=== PATIENT | female | born 1990 | race American Indian/Alaskan Native ===

== ENCOUNTER 2017-02-27 23:20 | Emergency (ER) | payer MEDICAID ==
[2017-02-27] MEDS ORDERED: Albuterol/Ipratropium 3.0-0.5 MG/3 ML Neb Soln NEB ONE (23:26)
--- NOTE | 2017-02-27 23:34 | EDM.PDOC ---
ED HPI GENERAL MEDICAL PROBLEM - General Chief Complaint: Respiratory Problem Time Seen by Provider: 02/27/17 23:27 Source of Information: Reports: Patient, RN History Limitations: Reports: No Limitations - History of Present Illness INITIAL COMMENTS - FREE TEXT/NARRATIVE: sent from OB for SOB. denies asthma, been having sob past week. denies F/C. - Related Data Allergies Allergy/AdvReac Type Severity Reaction Status Date / Time No Known Allergies Allergy Verified 02/27/17 23:02 Home Meds: Home Meds Vit W-Ca,Fe,FA(<1 mg) [ Vitamins] 1 each PO DAILY 02/27/17 [ History] Past Medical History Endocrine/Metabolic History: Reports: Obesity/BMI 30+ - Past Surgical History Musculoskeletal Surgical History: Reports: Arthroscopic Procedure Social & Family History - Family History Cardiac: Reports: CAD Endocrine/Metabolic: Reports: Diabetes, type II, Obesity/MBI 30+ - Tobacco Use Smoking Status *Q: Never Smoker Second Hand Smoke Exposure: No - Caffeine Use Caffeine Use: Reports: Soda - Recreational Drug Use Recreational Drug Use: No - Living Situation & Occupation Living situation: Reports: with Family ED ROS GENERAL - Review of Systems Review Of Systems: ROS reveals no pertinent complaints other than HPI. ED EXAM, GENERAL - Physical Exam Exam: See Below Exam Limited By: No Limitations General Appearance: Alert, WD/WN, No Apparent Distress Ears: Hearing Grossly Normal Throat/Mouth: Normal Voice, No Airway Compromise Head: Atraumatic Neck: Non-Tender, Full Range of Motion Respiratory/Chest: No Respiratory Distress, No Accessory Muscle Use, Rhonchi. No: Decreased Breath Sounds Cardiovascular: Regular Rate, Rhythm GI/Abdominal: Soft, Non-Tender Neurological: Alert, Oriented, Normal Cognition, Normal Gait, No Motor/Sensory Deficits, Other Psychiatric: Normal Affect Skin Exam: Warm, Dry, Normal Color Lymphatic: No Adenopathy Course - Vital Signs Last Recorded V/S: Last Vital Signs Temp 36.8 C 02/27/17 23:45 Pulse 89 02/28/17 00:03 Resp 16 02/28/17 00:03 BP 145/84 H 02/28/17 00:03 Pulse Ox 97 02/28/17 00:03 - Orders/Labs/Meds Orders: Active Orders 24 hr Category Date Time Status RT Aerosol Therapy [RC] ASDIRECTED Care 02/27/17 23:27 Active Labs: Laboratory Tests 02/27/17 02/27/17 02/27/17 Range/Units 23:20 23:20 23:30 WBC 11.2 H (5.0-10.0) 10^3/uL RBC 4.13 L (4.2-5.4) 10^6/uL Hgb 11.5 L (12.0-16.0) g/dL Hct 35.1 L (37.0-47.0) % MCV 85.0 (80-100) fL MCH 27.8 (27.0-34.0) pg MCHC 32.8 L (33.0-35.0) g/dL Plt Count 327 (150-450) 10^3/uL Sodium (135-145) mmol/L Potassium (3.6-5.0) mmol/L Chloride (101-111) mmol/L Carbon Dioxide (21.0-31.0) mmol/L Anion Gap BUN (7-18) mg/dL Creatinine (0.6-1.3) mg/dL Est Cr Clr Drug Dosing mL/min Estimated GFR (MDRD) BUN/Creatinine Ratio Glucose (74-105) mg/dL Uric Acid (2.6-7.2) mg/dL Calcium (8.4-10.2) mg/dl Total Bilirubin (0.2-1.0) mg/dL AST (10-42) IU/L ALT (10-60) IU/L Alkaline Phosphatase (42-121) IU/L Lactate Dehydrogenase (91-180) IU/L Total Protein (6.7-8.2) g/dl Albumin (3.2-5.5) g/dl Globulin Albumin/Globulin Ratio Urine Color Yellow (YELLOW) Urine Appearance Clear (CLEAR) Urine pH 7.0 (5.0-9.0) Ur Specific [place] 1.015 (1.005-1.030) Urine Protein Negative (NEGATIVE) Urine Glucose (UA) Negative (NEGATIVE) Urine Ketones Negative (NEGATIVE) Urine Occult Blood Negative (NEGATIVE) Urine Nitrite Negative (NEGATIVE) Urine Bilirubin Negative (NEGATIVE) Urine Urobilinogen 0.2 (0.2-1.0) mg/dL Ur Leukocyte Esterase Negative (NEGATIVE) Urine RBC 0-5 /HPF Urine WBC 0-5 (0-5/HPF) /HPF Ur Epithelial Cells Few /HPF Urine Bacteria Moderate H (0-FEW/HPF) /HPF Ur Random Creatinine 44 mg/dL U Random Total Protein 7 (0.00-9.9) mg/dL Protein/Creatinin Ratio 0.15 02/27/17 Range/Units 23:30 WBC (5.0-10.0) 10^3/uL RBC (4.2-5.4) 10^6/uL Hgb (12.0-16.0) g/dL Hct (37.0-47.0) % MCV (80-100) fL MCH (27.0-34.0) pg MCHC (33.0-35.0) g/dL Plt Count (150-450) 10^3/uL Sodium 137 (135-145) mmol/L Potassium 3.3 L (3.6-5.0) mmol/L Chloride 103 (101-111) mmol/L Carbon Dioxide 22.0 (21.0-31.0) mmol/L Anion Gap 15.3 BUN 8 (7-18) mg/dL Creatinine 0.4 L (0.6-1.3) mg/dL Est Cr Clr Drug Dosing 205.17 mL/min Estimated GFR (MDRD) > 60 BUN/Creatinine Ratio 20.00 Glucose 91 (74-105) mg/dL Uric Acid 2.5 L (2.6-7.2) mg/dL Calcium 10.1 (8.4-10.2) mg/dl Total Bilirubin 0.3 (0.2-1.0) mg/dL AST 16 (10-42) IU/L ALT 18 (10-60) IU/L Alkaline Phosphatase 96 (42-121) IU/L Lactate Dehydrogenase 155 (91-180) IU/L Total Protein 7.0 (6.7-8.2) g/dl Albumin 2.9 L (3.2-5.5) g/dl Globulin 4.1 Albumin/Globulin Ratio 0.71 Urine Color (YELLOW) Urine Appearance (CLEAR) Urine pH (5.0-9.0) Ur Specific [place] (1.005-1.030) Urine Protein (NEGATIVE) Urine Glucose (UA) (NEGATIVE) Urine Ketones (NEGATIVE) Urine Occult Blood (NEGATIVE) Urine Nitrite (NEGATIVE) Urine Bilirubin (NEGATIVE) Urine Urobilinogen (0.2-1.0) mg/dL Ur Leukocyte Esterase (NEGATIVE) Urine RBC /HPF Urine WBC (0-5/HPF) /HPF Ur Epithelial Cells /HPF Urine Bacteria (0-FEW/HPF) /HPF Ur Random Creatinine mg/dL U Random Total Protein (0.00-9.9) mg/dL Protein/Creatinin Ratio Meds: Medications Discontinued Medications Generic Name Dose Route Start Last Admin Trade Name Freq PRN Reason Stop Dose Admin Albuterol/Ipratropium 3 ml 02/27/17 23:26 02/27/17 23:36 Duoneb 3.0-0.5 Mg/3 Ml NEB 02/27/17 23:27 3 ml ONETIME ONE Administration - Re-Assessments/Exams Free Text/Narrative Re-Assessment/Exam: 02/28/17 00:30 re-exam; s/p duoneb = 90% cleared. Departure - Departure Time of Disposition: 00:30 Disposition: Home, Self-Care 01 Condition: Good Clinical Impression: Bronchospasm - Discharge Information Instructions: Bronchospasm, Adult, [id number] Referrals: Arelis Savage MD [Primary Care Provider] - Forms: ED Department Discharge Additional Instructions: Lay down and rest as much as possible until your appointment with Dr Savage on Tuesday this week. Check and record blood pressures occassionally and bring to appointment. Return if symptoms worsen. Call [phone] with any questions anytime. - My Orders Last 24 Hours: My Active Orders 02/27/17 23:27 RT Aerosol Therapy [RC] ASDIRECTED - Assessment/Plan Last 24 Hours: My Active Orders 02/27/17 23:27 RT Aerosol Therapy [RC] ASDIRECTED
[2017-02-28 00:03] VITALS: BP 145/84
[2017-02-28 00:04] LABS: CHLORIDE,CL 103 mmol/L (101-111); SODIUM,NA 137 mmol/L (135-145)
== END 2017-02-28 00:34 | disposition home or self-care (01) ==
LOC: DL.ED 23:20 → EDSTATUS 23:21 → DL.ED 02-28 00:34
DX: J98.01 Acute bronchospasm (principal); E66.9 Obesity, unspecified; E11.9 Type 2 diabetes mellitus without complications
CPT/HCPCS: 36415; 80053; 81001; 82570; 83615; 84156; 84550; 85027; 94640; 99285

== ENCOUNTER 2017-04-04 00:07 | Inpatient (IN) | payer BC, MEDICAID ==
[2017-04-04] MEDS ORDERED: Lactated Ringers 500 ML IV ONE (00:25)
[2017-04-04] MEDS ORDERED: Lidocaine 1% 30 ML SDV INJECT PRN (00:25)
[2017-04-04] MEDS ORDERED: fentaNYL 100 MCG/2 ML SDV IVPUSH PRN (00:25)
[2017-04-04] MEDS ORDERED: Penicillin G Potassium 5 MILLUNITS in Sodium Chloride 0.9% 100 ML IV ONE ×2 (00:25→16:00)
[2017-04-04] MEDS ORDERED: Methylergonovine 0.2 MG/1 ML Amp IM PRN (00:25)
[2017-04-04] MEDS ORDERED: Acetaminophen 325 MG Tab PO PRN (00:25)
[2017-04-04] MEDS ORDERED: Misoprostol 400 MCG (4 X 100 MCG TAB) RECTAL PRN (00:25)
[2017-04-04] MEDS ORDERED: Nalbuphine 20 MG/1 ML Amp IVPUSH PRN (00:25)
[2017-04-04] MEDS ORDERED: Carboprost Tromethamine 250 MCG/1 ML Amp IM PRN (00:25)
[2017-04-04] MEDS ORDERED: Oxytocin 10 Units/1 ML SDV IM ONE (00:25)
--- NOTE | 2017-04-04 00:35 | PCM.LDHP ---
L&D History of Present Illness - General Date of Service: 04/04/17 Admit Problem/Dx: Patient Status Order with Admit Dx/Problem 04/04/17 00:25 Patient Status [ADT] Routine Admission Diagnosis/Problem Admission Diagnosis/Problem Source of Information: Patient History Limitations: Reports: No Limitations - History of Present Illness Introduction:: 26-year-old at 37w1d presents for IOL for gestational HTN. Baby has been active. Minimal [place] contractions. NO vaginal bleeding or leaking of fluids. No new headaches or vision changes. Taking labetalol 200 mg BID. Last dose was this evening. - Related Data Allergies/Adverse Reactions: Allergies Allergy/AdvReac Type Severity Reaction Status Date / Time No Known Allergies Allergy Verified 04/01/17 23:18 Home Medications: Home Meds Vit W-Ca,Fe,FA(<1 mg) [ Vitamins] 1 each PO DAILY 02/27/17 [ History] Labetalol HCl [Labetalol] 200 mg PO BID 03/21/17 [History] Past Medical History HEENT History: Reports: None Cardiovascular History: Reports: Hypertension, Other (See Below) Other Cardiovascular History: Gestational hypertension Respiratory History: Reports: None Gastrointestinal History: Reports: None Genitourinary History: Reports: None [employer]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: Musculoskeletal History: Reports: Fracture Neurological History: Reports: None Psychiatric History: Reports: None Endocrine/Metabolic History: Reports: Obesity/BMI 30+ Hematologic History: Reports: None Immunologic History: Reports: None Oncologic (Cancer) History: Reports: None Dermatologic History: Reports: Eczema - Infectious Disease History Infectious Disease History: Reports: Chicken Pox - Past Surgical History Musculoskeletal Surgical History: Reports: Arthroscopic Procedure Social & Family History - Family History Family Medical History: Noncontributory Cardiac: Reports: CAD Endocrine/Metabolic: Reports: Diabetes, type II, Obesity/MBI 30+ - Tobacco Use Smoking Status *Q: Never Smoker Second Hand Smoke Exposure: No - Caffeine Use Caffeine Use: Reports: None - Recreational Drug Use Recreational Drug Use: No - Living Situation & Occupation Living situation: Reports: with Family H&P Review of Systems - Review of Systems: Review Of Systems: See Below General: Reports: No Symptoms HEENT: Reports: No Symptoms Pulmonary: Reports: No Symptoms Cardiovascular: Reports: No Symptoms Gastrointestinal: Reports: No Symptoms Genitourinary: Reports: No Symptoms Musculoskeletal: Reports: No Symptoms Skin: Reports: No Symptoms L&D Exam - Exam Exam: See Below - OB Specific Contraction Intensity: Irritability Movement: Active Heart Tones: Present Heart Tones per Min: 135 Heart Rate (FHR) Variability: Moderate (6-25 bmp) Presentation: Vertex - Hirsch Score Hirsch Score Cervix Position: Midposition Hirsch Score Consistency: Soft Hirsch Score Effacement: 51-70% Hirsch Score Dilation: 1-2 cm Hirsch Score 's Station: -2 Hirsch Score Total: 7 - Exam General: Alert, Oriented HEENT: Conjunctiva Clear, EACs Clear Lungs: Clear to Auscultation, Normal Respiratory Effort Cardiovascular: Regular Rate, Regular Rhythm. No: Systolic Murmur, Diastolic Murmur Genitourinary: Normal external exam Extremities: Pedal Edema (Trace bilaterally) Skin: Warm, Dry, Intact - Problem List (1) Impaired glucose tolerance during Status: Acute Current Visit: Yes (2) GBS (group B Streptococcus carrier), +RV culture, currently SNOMED Code(s): 81217767 ICD Code: O99.820 - STREPTOCOCCUS B CARRIER STATE COMPLICATING Status: Acute Current Visit: Yes (3) Gestational HTN SNOMED Code(s): 08784028 ICD Code: O13.9 - GESTATIONAL HTN W/O SIGNIFICANT PROTEINURIA, UNSP TRIMESTER Status: Acute Current Visit: No (4) care in third trimester SNOMED Code(s): 103494182, 78256516, 469171285, 175129390 ICD Code: Z34.93 - ENCNTR FOR SUPRVSN OF NORMAL PREG, UNSP, THIRD TRIMESTER Status: Acute Current Visit: No Problem List Initiated/Reviewed/Updated: Yes Orders Last 24hrs: Active Orders 24 hr Category Date Time Status Patient Status [ADT] Routine ADT 04/04/17 00:25 Ordered Communication Order [RC] ASDIRECTED Care 04/04/17 00:25 Ordered Communication Order [RC] ASDIRECTED Care 04/04/17 00:25 Ordered Communication Order [RC] ASDIRECTED Care 04/04/17 00:25 Ordered Communication Order [RC] ASDIRECTED Care 04/04/17 00:25 Ordered Communication Order [RC] ASDIRECTED Care 04/04/17 00:25 Ordered Communication Order [RC] ASDIRECTED Care 04/04/17 00:25 Ordered Heart Tones [RC] PER UNIT ROUTINE Care 04/04/17 00:25 Ordered Monitoring [RC] PER UNIT ROUTINE Care 04/04/17 00:25 Ordered Notify Provider Vital Signs OB [RC] ASDIRECTED Care 04/04/17 00:25 Ordered Notify Provider [RC] PRN Care 04/04/17 00:25 Ordered Notify Provider [RC] PRN Care 04/04/17 00:25 Ordered Notify Provider [RC] PRN Care 04/04/17 00:25 Ordered Notify Provider [RC] STAT Care 04/04/17 00:25 Ordered Peripheral IV Care [RC] . DIRECTED Care 04/04/17 00:26 Ordered Pump Management, Intrathecal [RC] ASDIRECTED Care 04/04/17 00:25 Ordered Up ad Jinny [RC] ASDIRECTED Care 04/04/17 00:25 Ordered Vaginal Exam [RC] PRN Care 04/04/17 00:25 Ordered Vital Signs [RC] PER UNIT ROUTINE Care 04/04/17 00:25 Ordered Clear Liquid Diet [DIET] Diet 04/04/17 Breakfast Ordered CBC W/O DIFF,HEMOGRAM [HEME] Routine Lab 04/04/17 00:25 Ordered Acetaminophen [Tylenol] Med 04/04/17 00:25 Ordered 650 mg PO Q4H PRN Carboprost Tromethamine [Hemabate DS] Med 04/04/17 00:25 Ordered 250 mcg IM ASDIRECTED PRN Lactated Ringers @ 125 MLS/HR(1000ml) Med 04/04/17 00:30 Ordered Lactated Ringers [Ringers, Lactated] 1,000 ml IV ASDIRECTED Lactated Ringers [Ringers, Lactated] 500 ml Med 04/04/17 00:25 Ordered IV .BOLUS Lidocaine 1% [Xylocaine-MPF 1%] Med 04/04/17 00:25 Ordered 10 ml INJECT ASDIRECTED PRN Methylergonovine [Methergine] Med 04/04/17 00:25 Ordered 0.2 mg IM ASDIRECTED PRN Misoprostol [Cytotec] Med 04/04/17 00:25 Ordered 25 mcg VAG Q4H PRN Misoprostol [Cytotec] Med 04/04/17 00:25 Ordered 800 mcg RECTAL ASDIRECTED PRN Nalbuphine [Nubain] Med 04/04/17 00:25 Ordered 10 mg IVPUSH Q3H PRN Ondansetron [Zofran] Med 04/04/17 00:25 Ordered 4 mg IV Q4H PRN Oxytocin 30 Units in NS @ 2 MUNITS/MIN(500ml) Med 04/04/17 00:30 Ordered Oxytocin/Normal Saline [Pitocin in NS 30 UNIT/500 ML] 30 unit in 500 ml IV TITRATE Oxytocin [Pitocin] Med 04/04/17 00:25 Once 10 unit IM ONETIME ONE Penicillin G Potassium [Pfizerpen] 3 millunits Med 04/04/17 02:00 Ordered Sodium Chloride 0.9% [Normal Saline] 100 ml IV Q4HR Penicillin G Potassium [Pfizerpen] 5 millunits Med 04/04/17 00:25 Ordered Sodium Chloride 0.9% [Normal Saline] 100 ml IV ONETIME fentaNYL [Sublimaze] Med 04/04/17 00:25 Ordered 50 mcg IVPUSH Q1H PRN Peripheral IV Insertion Adult [OM.PC] Urgent Oth 04/04/17 00:25 Ordered Saline Lock Insert [OM.PC] Routine Oth 04/04/17 00:25 Ordered Resuscitation Status Routine Resus Stat 04/04/17 00:25 Ordered Assessment/Plan Comment:: 26-year-old at 37w1d presents for IOL for gestational HTN 1. Admit to L&D. Initiate routine intrapartum orders 2. Cytotec for cervical ripening. Plan for AROM and pitocin as needed for augmentation. 3. Will start PCN for GBS positive status when patient is in more active labor 4. Continue home dose of labetalol 5. Expectant management. Arelis Savage MD
[2017-04-04] MEDS: Misoprostol 25 MCG (1/4 of 100 MCG) Tab VAG PRN ×3 (00:52→08:52)
[2017-04-04] MEDS: Labetalol 100 MG Tab PO SCH ×2 (08:50→22:03)
[2017-04-04] MEDS: Oxytocin/Normal Saline 30 UNIT/500 ML BAG IV SCH (15:32)
[2017-04-04] MEDS: Lactated Ringers 1,000 ML IV SCH ×3 (15:32→22:29)
[2017-04-04] MEDS: Penicillin G Potassium 3 MILLUNITS in Sodium Chloride 0.9% 100 ML IV SCH ×3 (16:55→21:54)
[2017-04-04] MEDS: Labetalol 20 MG/4 ML Syringe IVPUSH PRN (17:10)
[2017-04-04] MEDS: Ondansetron 4 MG/2 ML SDV IV PRN (21:26)
[2017-04-04] MEDS ORDERED: fentaNYL 100 MCG/2 ML SDV ONE (21:36)
--- NOTE | 2017-04-04 22:29 | PCM.PRNOTE ---
- Free Text/Narrative Note: Requested to provide analgesia to full term patient in severe pain. Upon entering the room, patient is sitting on edge of bed complaining of severe abdominal pain and discomfort. Procedure was discussed with patient including adverse outcomes and expectations. Pt consented to analgesia, SAB/IT. Pt placed into a sitting position. Landmarks for SAB/IT were identified and marked. Back was prepped with betadine x3. A sterile, transparent, fenestrated drape was applied. Excess betadine was removed. Using 3 mL of a 1% lidocaine solution, a skin wheel was placed at the L3/L4 interspace. A 24 ga (4 inch) Pencan spinal needle was inserted until positive for CSF. Negative for heme or paresthesias. Injected fentanyl 20 mcg, sufentanil 10 mcg, and 11.25 mg of a 0.75% bupivacaine solution with an epi wash. Pt was placed left lateral position for approximately 20 minutes. There were zero complications or adverse outcomes. Will continue to monitor.
[2017-04-05] MEDS ORDERED: Nalbuphine 20 MG/1 ML Amp IM ONE (02:38)
[2017-04-05] MEDS: Labetalol 20 MG/4 ML Syringe IVPUSH PRN (03:11)
[2017-04-05] MEDS: Penicillin G Potassium 3 MILLUNITS in Sodium Chloride 0.9% 100 ML IV SCH ×3 (03:19→12:10)
[2017-04-05] MEDS ORDERED: fentaNYL 100 MCG/2 ML SDV ONE (03:34)
[2017-04-05] MEDS: Ondansetron 4 MG/2 ML SDV IV PRN (03:34)
[2017-04-05] MEDS: Lactated Ringers 1,000 ML IV SCH ×3 (03:39→08:01)
--- NOTE | 2017-04-05 04:26 | PCM.PRNOTE ---
- Free Text/Narrative Note: Requested to provide analgesia to full term patient in severe pain. Upon entering the room, patient is lying on left side complaining of severe abdominal pain and discomfort. Procedure was discussed with patient including adverse outcomes and expectations. Pt consented to analgesia, SAB/IT. Pt placed into a sitting position. Landmarks for SAB/IT were identified and marked. Back was prepped with betadine x3. A sterile, transparent, fenestrated drape was applied. Excess betadine was removed. Using 3 mL of a 1% lidocaine solution, a skin wheel was placed at the L3/L4 interspace. A 24 ga (4 inch) Pencan spinal needle was inserted until positive for CSF. Negative for heme or paresthesias. Injected fentanyl 20 mcg, sufentanil 10 mcg, and 12 mg of a 0.75 % bupivacaine solution with an epi wash. Pt was placed left lateral position for approximately 20 minutes. There were zero complications or adverse outcomes. Will continue to monitor.
[2017-04-05] MEDS ORDERED: Benzocaine/Menthol 20%-0.5% Spray 56 GM Canister TOP PRN (08:49)
[2017-04-05] MEDS ORDERED: Sodium Chloride 0.9% 10 ML Syringe FLUSH PRN (08:49)
[2017-04-05] MEDS ORDERED: Simethicone 80 MG Tab.Chew PO PRN (08:49)
[2017-04-05] MEDS: Prenatal Multivitamin with Calcium/Folic Acid/Iron Tab PO SCH (09:08)
[2017-04-05] MEDS: Ibuprofen 800 MG Tab PO PRN ×2 (09:08→20:09)
[2017-04-05] MEDS: Docusate Sodium 100 MG Cap PO PRN ×2 (09:08→20:09)
[2017-04-05] MEDS: Labetalol 100 MG Tab PO SCH ×2 (09:09→20:23)
[2017-04-05] MEDS: Oxytocin/Normal Saline 30 UNIT/500 ML BAG IV SCH (09:16)
[2017-04-05] MEDS ORDERED: fentaNYL 100 MCG/2 ML SDV ITHECAL ONE (13:11)
--- NOTE | 2017-04-05 16:51 | PCM.DEL ---
L & D Note - General Info Date of Service: 04/05/17 Mother's Due Date: 04/23/17 - Delivery Note Labor: Augmented by ARM, Augmented by Oxytocin Cervical Ripening Method: Misoprostil Delivery Outcome: Livebirth Infant Delivery Method: Spontaneous Vaginal Delivery-Single Delivery Mode: Vacuum Extraction Presentation: Vertex Nuchal Cord: Present, Reduced Anesthesia Type: Local, Intrathecal Anesthetic: Lidocaine (Xylocaine) 0.5% Plain Local Anesthetic Volume: 5cc Amniotic Fluid Description: Clear Episiotomy Type: None Laceration: 2nd Degree, Perineal Suture type: Vicryl Suture size: 3-0 Placenta: Intact, Spontaneous Cord: 3 Vessels Estimated Blood Loss: 225 Resuscitation Needed: Yes : Suctioned, Bulb Syringe, Stimulated, Warmed, Warmer Used Provider: Arelis Savage Score 1 min: 4 Score 5 min: 8 Post Delivery Events: Shoulder Dystocia (30 seconds; resolved with McRobert's and suprapubic pressure) Delivery Comments (Free Text/Narrative):: 26-year-old, , presented to L&D at 37w2d gestation for IOL due to gestational HTN. Patient received 3 doses of Cytotec. After the 3rd dose, patient was spring too frequently for a 4th dose so pitocin was started. Patient SROM around 1900 yesterday. She received IV pain medications and intrathecal x2 for pain relief. Patient progressed and was noted to be completed at 0700 today (37w3d). She pushed for one hour. Due to maternal fatigue, a vacuum delivery was performed. The vacuum was applied for 7 minutes and used during 2 contractions. There were no pop-offs. After delivery of the head, a should dystocia occurred. This lasted approximately 30 seconds and resolved using McRobert's positioning and suprapubic pressure. After delivery, a loose nuchal was reduced. Umbilical cord was cut and clamped x2. Baby was taken to the warmer for resuscitation. Apgars were 4 and 8 at 1 and 5 minutes respectively. The placenta delivered spontaneously a short time later. Pitocin was stated. A second degree perineal laceration was repaired in the usual fashion. Bleeding was noted to be appropriate. There were no immediate complications. Induction Criteria - Hirsch Score Hirsch Score Dilation: 1-2 cm Hirsch Score Effacement: 40-50% Hirsch Score Infant's Station: -2 Hirsch Score Consistency: Medium Hirsch Score Cervix Position: Posterior Hirsch Score Total: 4 - Induction Gestational Age >/= 39 wks: No Medical Indication: Gestational HTN Estimated Pelvis: Reports: Adequate Reassuring Monitoring Strip: Yes Absence of Tachy Systole: Yes - Augmentation Estimated Pelvis: Reports: Adequate Weight Estimated:: Reports: AGA Reassuring Monitoring Strip: Yes Absence of Tachy Systole: Yes Vacuum Extractor Progress Note - Alternative Labor Strategies Considered Alternative Labor Strategies Considered:: Reports: Yes Strategies Considered:: Reports: Contraction Intensity Adequate, Position Changes Used to Facilitate Rotation & Descent, Empty Bladder, Rest Indications Considered:: Reports: Yes Indications:: Reports: Shortening of 2nd Stage for Maternal Benefit - Patient Prepared Patient Prepared:: Reports: Yes Informed Consent:: Reports: Verbal Risks Include:: Reports: Shoulder Dystocia, Maternal Injury Anesthesia/Analgesia Adequate:: Reports: Yes - Probability of Success High Probability of Success:: Reports: Yes Weight Estimated:: Reports: AGA Patient Diabetic:: Reports: No Pelvis Adequate:: Reports: Yes Asynclitic:: Reports: No - Application Time Maximum Application Time & Number of Pop-Offs Predetermined:: Reports: Yes Type of Vacuum Used:: Reports: Cup: Mcneal type Vacuum Extraction: Successful - General Info Date of Service: 04/05/17 - Patient Data Vitals - Most Recent: Last Vital Signs Temp 37.1 C 04/05/17 11:00 Pulse 81 04/05/17 16:23 Resp 16 04/05/17 16:23 BP 141/83 H 04/05/17 16:23 Pulse Ox Weight - Most Recent: 153.314 kg I&O - Last 24 Hours: Intake & Output 04/05/17 04/05/17 04/05/17 06:59 14:59 22:59 Intake Total 9520 Output Total 950 Balance 8570 Lab Results Last 24 Hours: Laboratory Results - last 24 hr 04/04/17 04/04/17 04/04/17 Range/Units 17:30 17:30 18:00 WBC 9.6 (5.0-10.0) 10^3/uL RBC 4.06 L (4.2-5.4) 10^6/uL Hgb 10.7 L (12.0-16.0) g/dL Hct 33.2 L (37.0-47.0) % MCV 81.8 (80-100) fL MCH 26.4 L (27.0-34.0) pg MCHC 32.2 L (33.0-35.0) g/dL Plt Count 327 (150-450) 10^3/uL BUN (7-18) mg/dL Creatinine (0.6-1.3) mg/dL Est Cr Clr Drug Dosing mL/min Estimated GFR (MDRD) Uric Acid (2.6-7.2) mg/dL AST (10-42) IU/L Alkaline Phosphatase (42-121) IU/L Lactate Dehydrogenase (91-180) IU/L Urine Color Yellow (YELLOW) Urine Appearance Slightly cloudy (CLEAR) Urine pH 7.0 (5.0-9.0) Ur Specific [place] 1.010 (1.005-1.030) Urine Protein Negative (NEGATIVE) Urine Glucose (UA) Negative (NEGATIVE) Urine Ketones Negative (NEGATIVE) Urine Occult Blood Negative (NEGATIVE) Urine Nitrite Negative (NEGATIVE) Urine Bilirubin Negative (NEGATIVE) Urine Urobilinogen 0.2 (0.2-1.0) mg/dL Ur Leukocyte Esterase Negative (NEGATIVE) Ur Random Creatinine 47 mg/dL U Random Total Protein 6 (0.00-9.9) mg/dL Protein/Creatinin Ratio 0.12 04/04/17 Range/Units 18:00 WBC (5.0-10.0) 10^3/uL RBC (4.2-5.4) 10^6/uL Hgb (12.0-16.0) g/dL Hct (37.0-47.0) % MCV (80-100) fL MCH (27.0-34.0) pg MCHC (33.0-35.0) g/dL Plt Count (150-450) 10^3/uL BUN 7 (7-18) mg/dL Creatinine 0.5 L (0.6-1.3) mg/dL Est Cr Clr Drug Dosing 167.26 mL/min Estimated GFR (MDRD) > 60 Uric Acid 3.1 (2.6-7.2) mg/dL AST 22 (10-42) IU/L Alkaline Phosphatase 119 (42-121) IU/L Lactate Dehydrogenase 159 (91-180) IU/L Urine Color (YELLOW) Urine Appearance (CLEAR) Urine pH (5.0-9.0) Ur Specific [place] (1.005-1.030) Urine Protein (NEGATIVE) Urine Glucose (UA) (NEGATIVE) Urine Ketones (NEGATIVE) Urine Occult Blood (NEGATIVE) Urine Nitrite (NEGATIVE) Urine Bilirubin (NEGATIVE) Urine Urobilinogen (0.2-1.0) mg/dL Ur Leukocyte Esterase (NEGATIVE) Ur Random Creatinine mg/dL U Random Total Protein (0.00-9.9) mg/dL Protein/Creatinin Ratio Med Orders - Current: Current Medications Acetaminophen (Tylenol) 650 mg PO Q4H PRN PRN Reason: Pain (Mild 1-3) and fever Benzocaine/Menthol (Dermoplast Pain Relief [place]) 0 gm TOP Q4H PRN PRN Reason: Perineal comfort measures Last Admin: 04/05/17 14:24 Dose: 1 spray Carboprost Tromethamine (Hemabate Ds) 250 mcg IM ASDIRECTED PRN PRN Reason: HEMORRHAGE Docusate Sodium (Colace) 100 mg PO BID PRN PRN Reason: Constipation Last Admin: 04/05/17 09:08 Dose: 100 mg Ibuprofen (Motrin) 800 mg PO Q8H PRN PRN Reason: Mild Pain or Fever Last Admin: 04/05/17 09:08 Dose: 800 mg Labetalol HCl (Normodyne) 10 - 20 mg IVPUSH ASDIRECTED PRN PRN Reason: HYPERTENSION Last Admin: 04/05/17 03:11 Dose: 10 mg Labetalol HCl (Normodyne) 200 mg PO BID KARINE Last Admin: 04/05/17 09:09 Dose: Not Given Methylergonovine Maleate (Methergine) 0.2 mg IM ASDIRECTED PRN PRN Reason: Hemorrhage Misoprostol (Cytotec) 800 mcg RECTAL ASDIRECTED PRN PRN Reason: Hemorrhage Misoprostol (Cytotec) 25 mcg VAG Q4H PRN PRN Reason: cervical ripening Last Admin: 04/04/17 08:52 Dose: 25 mcg Nalbuphine HCl (Nubain) 10 mg IVPUSH Q3H PRN PRN Reason: Pain (moderate 4-6) Last Admin: 04/04/17 19:39 Dose: 10 mg Ondansetron HCl (Zofran) 4 mg IV Q4H PRN PRN Reason: Nausea/Vomiting Last Admin: 04/05/17 03:34 Dose: 4 mg Prenat Multivit/[place]/Iron/Folic Ac ( Plus Iron) 1 each PO DAILY KARINE Last Admin: 04/05/17 09:08 Dose: 1 each Simethicone (Simethicone) 80 mg PO Q4H PRN PRN Reason: Gas Sodium Chloride (Saline Flush) 10 ml FLUSH ASDIRECTED PRN PRN Reason: Keep Vein Open Discontinued Medications Fentanyl (Sublimaze) 50 mcg IVPUSH Q1H PRN PRN Reason: Pain (moderate 4-6) Last Admin: 04/04/17 18:35 Dose: 50 mcg Fentanyl (Sublimaze) Confirm Administered Dose 100 mcg .ROUTE .STK-MED ONE Stop: 04/04/17 21:37 Last Admin: 04/05/17 06:08 Dose: Not Given Fentanyl (Sublimaze) Confirm Administered Dose 100 mcg .ROUTE .STK-MED ONE Stop: 04/05/17 03:35 Last Admin: 04/05/17 06:07 Dose: Not Given Fentanyl (Sublimaze) 20 mcg ITHECAL .STK-MED ONE Stop: 04/05/17 13:12 Lactated Ringer's (Ringers, Lactated) 500 mls @ 999 mls/hr IV .BOLUS ONE Stop: 04/04/17 00:55 Last Admin: 04/05/17 06:08 Dose: Not Given Lactated Ringer's (Ringers, Lactated) 1,000 mls @ 125 mls/hr IV ASDIRECTED KARINE Last Admin: 04/05/17 08:01 Dose: 125 mls/hr Oxytocin/Sodium Chloride (Pitocin In Ns 30 Unit/500 Ml) 30 unit in 500 mls @ 2 mls/hr IV TITRATE KARINE; 2 MUNITS/MIN PRN Reason: Protocol Last Titration: 04/05/17 11:55 Dose: 0 mls/hr Penicillin G Potassium 5 (millunits/ Sodium Chloride) 100 mls @ 200 mls/hr IV ONETIME ONE Stop: 04/04/17 00:54 Last Admin: 04/04/17 16:53 Dose: Not Given Penicillin G Potassium 3 (millunits/ Sodium Chloride) 100 mls @ 200 mls/hr IV Q4H KARINE Last Admin: 04/04/17 18:06 Dose: Not Given Penicillin G Potassium 5 (millunits/ Sodium Chloride) 100 mls @ 200 mls/hr IV ONETIME ONE Stop: 04/04/17 16:29 Last Admin: 04/04/17 16:43 Dose: 200 mls/hr Penicillin G Potassium 3 (millunits/ Sodium Chloride) 100 mls @ 200 mls/hr IV Q4H KARINE Last Admin: 04/05/17 12:10 Dose: Not Given Lidocaine HCl (Xylocaine-Mpf 1%) 10 ml INJECT ASDIRECTED PRN PRN Reason: Perineal Repair Last Admin: 04/05/17 08:35 Dose: 10 ml Nalbuphine HCl (Nubain) 20 mg IM ONETIME ONE Stop: 04/05/17 02:39 Last Admin: 04/05/17 02:48 Dose: 20 mg Oxytocin (Pitocin) 10 unit IM ONETIME ONE Stop: 04/04/17 00:26 Last Admin: 04/04/17 16:54 Dose: Not Given Sufentanil Citrate (Sufenta) Confirm Administered Dose 50 mcg .ROUTE .STK-MED ONE Stop: 04/04/17 21:38 Last Admin: 04/05/17 06:08 Dose: Not Given Sufentanil Citrate (Sufenta) Confirm Administered Dose 50 mcg .ROUTE .STK-MED ONE Stop: 04/05/17 03:35 Last Admin: 04/05/17 06:07 Dose: Not Given Sufentanil Citrate (Sufenta) 10 mcg ITHECAL .STK-MED ONE Stop: 04/05/17 13:12 - Problem List & Annotations (1) Impaired glucose tolerance during Status: Acute Current Visit: Yes (2) GBS (group B Streptococcus carrier), +RV culture, currently SNOMED Code(s): 99454808 Code(s): O99.820 - STREPTOCOCCUS B CARRIER STATE COMPLICATING Status: Acute Current Visit: Yes (3) Gestational HTN SNOMED Code(s): 88956599 Code(s): O13.9 - GESTATIONAL HTN W/O SIGNIFICANT PROTEINURIA, UNSP TRIMESTER Status: Acute Current Visit: No (4) care in third trimester SNOMED Code(s): 135667323, 15131106, 380495384, 794521571 Code(s): Z34.93 - ENCNTR FOR SUPRVSN OF NORMAL PREG, UNSP, THIRD TRIMESTER Status: Acute Current Visit: No (5) Status post vacuum-assisted vaginal delivery SNOMED Code(s): 841788031 Code(s): Z87.42 - PERSONAL HISTORY OF OTH DISEASES OF THE FEMALE GENITAL TRACT Status: Acute Current Visit: Yes - Problem List Review Problem List Initiated/Reviewed/Updated: Yes - My Orders Last 24 Hours: My Active Orders 04/05/17 08:49 Vital Signs [RC] PFP Consult to Medical Scientist [CONS] Routine Benzocaine/Menthol [Dermoplast Pain Relief [place]] See Dose Instructions TOP Q4H PRN Docusate Sodium [Colace] 100 mg PO BID PRN Ibuprofen [Motrin] 800 mg PO Q8H PRN Simethicone 80 mg PO Q4H PRN Sodium Chloride 0.9% [Saline Flush] 10 ml FLUSH ASDIRECTED PRN Assess Lochia [WOMSER] Per Unit Routine Assess Uterine Involution [WOMSER] Per Unit Routine Breast Pump [WOMSER] Per Unit Routine Ice Therapy [OM.PC] Per Unit Routine Perineal Care [OM.PC] Per Unit Routine Saline Lock Insert [OM.PC] Urgent Sitz Bath [OM.PC] Per Unit Routine 04/05/17 09:00 Vit with Ca/FA/Iron [ Plus Iron] 1 each PO DAILY 04/05/17 Breakfast Regular Diet [DIET] - Assessment Assessment:: 26-year-old, now , status post vacuum assisted vaginal delivery at 37w3d for gestational HTN - Plan Plan:: 1. Initiate routine cares 2. Plans to breastfeed 3. Continue home dose of labetalol 4. Anticipate discharge 04/07/17 Arelis Savage MD
[2017-04-06] MEDS: Prenatal Multivitamin with Calcium/Folic Acid/Iron Tab PO SCH (08:22)
[2017-04-06] MEDS: Ibuprofen 800 MG Tab PO PRN ×2 (08:22→17:11)
[2017-04-06] MEDS: Docusate Sodium 100 MG Cap PO PRN ×2 (08:22→21:02)
[2017-04-06] MEDS: Labetalol 100 MG Tab PO SCH ×2 (08:22→21:02)
--- NOTE | 2017-04-06 09:32 | PCM.PNPP ---
- General Info Date of Service: 04/06/17 Subjective Update: 26-year-old, now , PPD#1 status post vacuum-assisted vaginal delivery. Patient is doing well today. Her pain is well controlled. She is tolerating a general diet. She is ambulating without difficulty. No issues with urination. She has passed gas but has not yet had a bowel movement. Blood pressure has been well controlled. She is which has been a struggle. She has pumped once and is mostly finger-feeding her baby. No concerns per nursing. Functional Status: Reports: Pain Controlled, Tolerating Diet, Ambulating, Urinating. Denies: New Symptoms - Review of Systems General: Reports: No Symptoms HEENT: Reports: No Symptoms Pulmonary: Reports: No Symptoms Cardiovascular: Reports: No Symptoms Gastrointestinal: Reports: No Symptoms Genitourinary: Reports: No Symptoms Musculoskeletal: Reports: No Symptoms Skin: Reports: No Symptoms Neurological: Reports: No Symptoms - General Info Date of Service: 04/06/17 - Patient Data Vital Signs - Most Recent: Last Vital Signs Temp 36.6 C 04/05/17 23:25 Pulse 92 04/06/17 08:22 Resp 18 04/05/17 21:11 BP 146/88 H 04/06/17 08:22 Pulse Ox 94 L 04/05/17 21:11 Weight - Most Recent: 153.314 kg Med Orders - Current: Current Medications Acetaminophen (Tylenol) 650 mg PO Q4H PRN PRN Reason: Pain (Mild 1-3) and fever Benzocaine/Menthol (Dermoplast Pain Relief [place]) 0 gm TOP Q4H PRN PRN Reason: Perineal comfort measures Last Admin: 04/05/17 14:24 Dose: 1 spray Carboprost Tromethamine (Hemabate Ds) 250 mcg IM ASDIRECTED PRN PRN Reason: HEMORRHAGE Docusate Sodium (Colace) 100 mg PO BID PRN PRN Reason: Constipation Last Admin: 04/06/17 08:22 Dose: 100 mg Ibuprofen (Motrin) 800 mg PO Q8H PRN PRN Reason: Mild Pain or Fever Last Admin: 04/06/17 08:22 Dose: 800 mg Labetalol HCl (Normodyne) 10 - 20 mg IVPUSH ASDIRECTED PRN PRN Reason: HYPERTENSION Last Admin: 04/05/17 03:11 Dose: 10 mg Labetalol HCl (Normodyne) 200 mg PO BID [facility] Last Admin: 04/06/17 08:22 Dose: 200 mg Methylergonovine Maleate (Methergine) 0.2 mg IM ASDIRECTED PRN PRN Reason: Hemorrhage Misoprostol (Cytotec) 800 mcg RECTAL ASDIRECTED PRN PRN Reason: Hemorrhage Misoprostol (Cytotec) 25 mcg VAG Q4H PRN PRN Reason: cervical ripening Last Admin: 04/04/17 08:52 Dose: 25 mcg Nalbuphine HCl (Nubain) 10 mg IVPUSH Q3H PRN PRN Reason: Pain (moderate 4-6) Last Admin: 04/04/17 19:39 Dose: 10 mg Ondansetron HCl (Zofran) 4 mg IV Q4H PRN PRN Reason: Nausea/Vomiting Last Admin: 04/05/17 03:34 Dose: 4 mg Prenat Multivit/[place]/Iron/Folic Ac ( Plus Iron) 1 each PO DAILY [facility] Last Admin: 04/06/17 08:22 Dose: 1 each Simethicone (Simethicone) 80 mg PO Q4H PRN PRN Reason: Gas Sodium Chloride (Saline Flush) 10 ml FLUSH ASDIRECTED PRN PRN Reason: Keep Vein Open Discontinued Medications Fentanyl (Sublimaze) 50 mcg IVPUSH Q1H PRN PRN Reason: Pain (moderate 4-6) Last Admin: 04/04/17 18:35 Dose: 50 mcg Fentanyl (Sublimaze) Confirm Administered Dose 100 mcg .ROUTE .STK-MED ONE Stop: 04/04/17 21:37 Last Admin: 04/05/17 06:08 Dose: Not Given Fentanyl (Sublimaze) Confirm Administered Dose 100 mcg .ROUTE .STK-MED ONE Stop: 04/05/17 03:35 Last Admin: 04/05/17 06:07 Dose: Not Given Fentanyl (Sublimaze) 20 mcg ITHECAL .STK-MED ONE Stop: 04/05/17 13:12 Lactated Ringer's (Ringers, Lactated) 500 mls @ 999 mls/hr IV .BOLUS ONE Stop: 04/04/17 00:55 Last Admin: 04/05/17 06:08 Dose: Not Given Lactated Ringer's (Ringers, Lactated) 1,000 mls @ 125 mls/hr IV ASDIRECTED KARINE Last Admin: 04/05/17 08:01 Dose: 125 mls/hr Oxytocin/Sodium Chloride (Pitocin In Ns 30 Unit/500 Ml) 30 unit in 500 mls @ 2 mls/hr IV TITRATE KARINE; 2 MUNITS/MIN PRN Reason: Protocol Last Titration: 04/05/17 11:55 Dose: 0 mls/hr Penicillin G Potassium 5 (millunits/ Sodium Chloride) 100 mls @ 200 mls/hr IV ONETIME ONE Stop: 04/04/17 00:54 Last Admin: 04/04/17 16:53 Dose: Not Given Penicillin G Potassium 3 (millunits/ Sodium Chloride) 100 mls @ 200 mls/hr IV Q4H [facility] Last Admin: 04/04/17 18:06 Dose: Not Given Penicillin G Potassium 5 (millunits/ Sodium Chloride) 100 mls @ 200 mls/hr IV ONETIME ONE Stop: 04/04/17 16:29 Last Admin: 04/04/17 16:43 Dose: 200 mls/hr Penicillin G Potassium 3 (millunits/ Sodium Chloride) 100 mls @ 200 mls/hr IV Q4H [facility] Last Admin: 04/05/17 12:10 Dose: Not Given Lidocaine HCl (Xylocaine-Mpf 1%) 10 ml INJECT ASDIRECTED PRN PRN Reason: Perineal Repair Last Admin: 04/05/17 08:35 Dose: 10 ml Nalbuphine HCl (Nubain) 20 mg IM ONETIME ONE Stop: 04/05/17 02:39 Last Admin: 04/05/17 02:48 Dose: 20 mg Oxytocin (Pitocin) 10 unit IM ONETIME ONE Stop: 04/04/17 00:26 Last Admin: 04/04/17 16:54 Dose: Not Given Sufentanil Citrate (Sufenta) Confirm Administered Dose 50 mcg .ROUTE .STK-MED ONE Stop: 04/04/17 21:38 Last Admin: 04/05/17 06:08 Dose: Not Given Sufentanil Citrate (Sufenta) Confirm Administered Dose 50 mcg .ROUTE .STK-MED ONE Stop: 04/05/17 03:35 Last Admin: 04/05/17 06:07 Dose: Not Given Sufentanil Citrate (Sufenta) 10 mcg ITHECAL .STK-MED ONE Stop: 04/05/17 13:12 - Infant Interaction Disposition, : in Room with Family Infant Interaction: Holding Infant Infant Feeding: Attempted ; Nursed Fair/Poor - Recovery Exam Fundal Tone: Firm Fundal Level: At Umbilicus Fundal Placement: Midline Lochia Amount: Scant Lochia Color: Rubra/Red Perineum Description: Intact, Minimal Bruising/Swelling Episiotomy/Laceration: Approximated Bladder Status: Nonpalpable - Exam General: Alert, Oriented Lungs: Clear to Auscultation, Normal Respiratory Effort Cardiovascular: Regular Rate, Regular Rhythm, No Murmurs Extremities: Pedal Edema (Trace bilaterally) Skin: Warm, Dry, Intact - Problem List & Annotations (1) Impaired glucose tolerance during Status: Acute Current Visit: Yes (2) GBS (group B Streptococcus carrier), +RV culture, currently SNOMED Code(s): 11757166 Code(s): O99.820 - STREPTOCOCCUS B CARRIER STATE COMPLICATING Status: Acute Current Visit: Yes (3) Gestational HTN SNOMED Code(s): 02073168 Code(s): O13.9 - GESTATIONAL HTN W/O SIGNIFICANT PROTEINURIA, UNSP TRIMESTER Status: Acute Current Visit: No (4) care in third trimester SNOMED Code(s): 378559430, 84789319, 920932484, 856151468 Code(s): Z34.93 - ENCNTR FOR SUPRVSN OF NORMAL PREG, UNSP, THIRD TRIMESTER Status: Acute Current Visit: No (5) Status post vacuum-assisted vaginal delivery SNOMED Code(s): 059330585 Code(s): Z87.42 - PERSONAL HISTORY OF OTH DISEASES OF THE FEMALE GENITAL TRACT Status: Acute Current Visit: Yes - Problem List Review Problem List Initiated/Reviewed/Updated: Yes - My Orders Last 24 Hours: My Active Orders 04/05/17 08:49 Vital Signs [RC] 08,20 Consult to Rattling Machine Tender [CONS] Routine Benzocaine/Menthol [Dermoplast Pain Relief [place]] See Dose Instructions TOP Q4H PRN Docusate Sodium [Colace] 100 mg PO BID PRN Ibuprofen [Motrin] 800 mg PO Q8H PRN Simethicone 80 mg PO Q4H PRN Sodium Chloride 0.9% [Saline Flush] 10 ml FLUSH ASDIRECTED PRN Assess Lochia [WOMSER] Per Unit Routine Assess Uterine Involution [WOMSER] Per Unit Routine Breast Pump [WOMSER] Per Unit Routine Ice Therapy [OM.PC] Per Unit Routine Perineal Care [OM.PC] Per Unit Routine Saline Lock Insert [OM.PC] Urgent Sitz Bath [OM.PC] Per Unit Routine 04/05/17 09:00 Vit with Ca/FA/Iron [ Plus Iron] 1 each PO DAILY - Assessment Assessment:: 26-year-old, now , PPD#1 status post vacuum assisted vaginal delivery and 30 second shoulder dystocia at 37w3d for gestational HTN - Plan Plan:: 1. Continue routine cares 2. with difficulty. Will work with today. 3. Continue home dose of labetalol. Will continue until 6 weeks . 4. Anticipate discharge 04/07/17. Patient will be seen tomorrow by Dr. Mccoy in my absence. Arelis Savage MD
[2017-04-07] MEDS: Ibuprofen 800 MG Tab PO PRN ×2 (05:23→17:54)
[2017-04-07] MEDS: Labetalol 100 MG Tab PO SCH (10:31)
[2017-04-07] MEDS: Prenatal Multivitamin with Calcium/Folic Acid/Iron Tab PO SCH (10:34)
[2017-04-07 11:48] VITALS: BP 143/77
--- NOTE | 2017-04-11 10:55 | DISCH ---
HISTORY OF PRESENT ILLNESS: This patient is a 26-year-old, 1, now para 1 patient, who has been followed by Dr. Savage during the . During the course, she has developed gestational hypertension, but no true evidence for preeclampsia. She also has a history of impaired glucose tolerance, and she was positive for group B strep. The patient was at term, actually probably closer to 37 weeks' gestation. She was admitted for induction of labor because of the gestational hypertension. She has been on labetalol 200 mg p.o. b.i.d., that for the most part has controlled her gestational hypertension. Cytotec induction was begun on the evening of 04/03/2017. Please see Dr. Savage's admission history and physical and also dictated delivery note. HOSPITAL COURSE: The patient has proceeded on to have a vacuum-assisted vaginal delivery. She did have a viable baby girl, named Chantelle, who had scores of 4 and 8, and the weight was later reported as 8 pounds 2 ounces. There was some mild shoulder dystocia at delivery, and there was the repair of a second- degree perineal laceration. The patient and her baby have continued to do well. The baby does need to continue under the bilirubin lights for now. Dr. Savage has thoroughly discussed this patient with me regarding her discharge. The patient is discharged today, although actually she is going to stay as a rooming in status at the hospital for another day or two because her baby will stay. I have rounded on the patient this morning, Thanks, 04/07/2017. Her extremities are negative. Her blood pressure is in the 143/77 range. Her abdomen is soft and nontender. She remains afebrile. Other discharge instructions given to her were to avoid any strenuous physical activity or intercourse for approximately 6 weeks. She was also instructed to do progressive ambulation daily at home. She was instructed to contact us at once if any fever; excess vaginal bleeding; or any problems with her breasts, extremities; or any unusual pain or fever. She assures us that she will keep us closely informed on the phone if any questions or problems. Her diet is regular. Her next followup appointment would be in approximately two weeks for a blood pressure check, and also, the patient does her own blood pressure checks at home. The patient also will be seen in approximately 6 weeks for 6 week's visit. DISCHARGE MEDICATIONS: Consist of labetalol 200 mg p.o. b.i.d. for now, and she will have a BP check in the office in approximately 2 weeks[address] Possibly, Dr. Savage will continue the labetalol for up to 6 weeks depending upon the hypertension clinical course. Other discharge medications consisted of ibuprofen or Tylenol [id number] p.r.n. She will also utilize Colace 100 mg p.o. b.i.d. p.r.n. for constipation. FINAL DIAGNOSES: 1. at approximately 37 weeks' gestation, delivered. 2. Gestational hypertension. 3. Group B streptococcus positive. 4. Impaired glucose tolerance. 5. Mild shoulder dystocia at delivery. OPERATIONS AND PROCEDURES: 1. Vacuum-assisted vaginal delivery with mild shoulder dystocia. 2. Delivery of viable baby girl with scores of 4 and 8 and weight 8 pounds 2 ounces. 3. Repair of second-degree perineal laceration. [facility] /[id number]
== END 2017-04-07 18:00 | disposition home or self-care (01) | DRG 775 ==
LOC: DL.OBCHECK 00:07 → DL.OB 00:09 → UNDOADMOB 00:09 → INTOOBSV 08:25 → OBSVTOIN 08:25 → DL.OB 04-05 08:25 → UNDODISIN 04-07 18:00
PROVIDERS: ADMIT Family Medicine; ATTEND Family Medicine
PROC: 3E0P7VZ Introduction of Hormone into Female Reproductive, Via Natural or Artificial Opening (ICD-10-PCS; 2017-04-04)
PROC: 00HU33Z Insertion of Infusion Device into Spinal Canal, Percutaneous Approach (ICD-10-PCS; 2017-04-04)
PROC: 3E0R3BZ Introduction of Anesthetic Agent into Spinal Canal, Percutaneous Approach (ICD-10-PCS; 2017-04-04)
PROC: 10D07Z6 Extraction of Products of Conception, Vacuum, Via Natural or Artificial Opening (ICD-10-PCS; principal; 2017-04-05)
PROC: 0KQM0ZZ Repair Perineum Muscle, Open Approach (ICD-10-PCS; 2017-04-05)
DX: O13.4 Gestational [pregnancy-induced] hypertension without significant proteinuria, complicating childbirth (principal); Z68.43 Body mass index [BMI] 50.0-59.9, adult; O70.1 Second degree perineal laceration during delivery; O99.824 Streptococcus B carrier state complicating childbirth; Z37.0 Single live birth; Z3A.37 37 weeks gestation of pregnancy; O69.81X0 Labor and delivery complicated by cord around neck, without compression, not applicable or unspecified; O75.81 Maternal exhaustion complicating labor and delivery; O66.0 Obstructed labor due to shoulder dystocia; O99.214 Obesity complicating childbirth; E66.9 Obesity, unspecified; Z79.899 Other long term (current) drug therapy
CPT/HCPCS: 01967; 36415; 59300; 59409; 81003; 82565; 82570; 83615; 84075; 84156; 84450; 84520; 84550; 85027; A9270-GY; J2300; J2405; J2540; J2590; J3010; J7050; J7120

== ENCOUNTER 2021-11-26 19:28 | Emergency (ER) | payer BC, MEDICAID ==
[2021-11-26 20:08] LABS: AMPHETAMINES,URINE NEGATIVE (NEGATIVE); BARBITURATES,URINE NEGATIVE (NEGATIVE); BENZODIAZEPINE,URINE NEGATIVE (NEGATIVE); MDMA (ECSTASY), URINE NEGATIVE (NEGATIVE); METHADONE,URINE NEGATIVE (NEGATIVE); METHAMPHETAMINES,URINE NEGATIVE (NEGATIVE); OPIATES,URINE NEGATIVE (NEGATIVE); OXYCODONE,URINE NEGATIVE (NEGATIVE); PHENCYCLIDINE,URINE NEGATIVE (NEGATIVE); TCA,URINE NEGATIVE (NEGATIVE)
[2021-11-26 23:10] LABS: ANION GAP 14.2 mEq/L (7-13)
[2021-11-26] MEDS ORDERED: Iopamidol 612 MG/ML 100 ML Bottle IVPUSH ONE (23:20)
[2021-11-26] MEDS ORDERED: HYDROmorphone 0.5 MG/0.5 ML Syringe IVPUSH ONE (23:23)
[2021-11-27 00:41] VITALS: BP 143/84; PULSE 96
== END 2021-11-27 00:48 | disposition home or self-care (01) ==
LOC: DL.ED 19:28
DX: R10.30 Lower abdominal pain, unspecified (principal); F17.210 Nicotine dependence, cigarettes, uncomplicated; I10 Essential (primary) hypertension; E66.9 Obesity, unspecified; Z68.43 Body mass index [BMI] 50.0-59.9, adult; Z79.899 Other long term (current) drug therapy
CPT/HCPCS: 36415; 74177; 80053; 80305; 81001; 81025; 82150; 83605; 83690; 85025; 87040; 96374; 99284; J1170; Q9967

== ENCOUNTER 2021-12-27 07:21 | Emergency (ER) | payer MEDICAID ==
[2021-12-27 07:48] VITALS: BP 156/97; PULSE 96
[2021-12-27 08:52] LABS: CORONAVIRUS COVID-19 NAA NEGATIVE (NEGATIVE)
[2021-12-27] MEDS ORDERED: Azithromycin 250 MG Tab PO ONE (08:58)
== END 2021-12-27 09:10 | disposition home or self-care (01) ==
LOC: DL.ED 07:21
DX: J06.9 Acute upper respiratory infection, unspecified (principal); I10 Essential (primary) hypertension; E66.9 Obesity, unspecified; F17.210 Nicotine dependence, cigarettes, uncomplicated; Z68.30 Body mass index [BMI] 30.0-30.9, adult; Z79.84 Long term (current) use of oral hypoglycemic drugs; Z20.822 Contact with and (suspected) exposure to COVID-19
CPT/HCPCS: 0240U; 99283; 99284; A9270